=== PATIENT | female | born 1955 | race Caucasian/White ===

== ENCOUNTER 2017-07-26 22:44 | Emergency (ER) | payer OTHER ==
[~2017-07-26] VITALS: Ht 149.9 cm; Wt 65.0 kg
[~2017-07-26 22:44] MED LIST: CYMB60CA PO; DICL75 PO; ED B10TA PO; GABA300C3 PO; LATA.005%O OU; LEVE500 PO; LOPR50TA12 PO; LORT5TAB PO; LOVA20TA PO; METO50TA PO; OMEP20TA PO; PROT40TA PO; SERTRALINE PO; TIMO0.2525 OP; TOPI100 PO; ZOLP10TA3 PO
[2017-07-26 22:52] VITALS: BP 131/71; PULSE 63; RESP 16; TEMP 98.5; O2SAT 95
[2017-07-26] MEDS ORDERED: ARTIDRO EACH EYE (23:11)
[2017-07-26] MEDS ORDERED: IBUP200T47 PO (23:11)
[2017-07-26] MEDS ORDERED: TRIAM.1%T TOPICAL (23:11)
[2017-07-26] MEDS ORDERED: BACL10TA PO (23:11)
[2017-07-26] MEDS ORDERED: LOVA20TA PO (23:11)
[2017-07-26] MEDS ORDERED: TIMO0.254 EACH EYE (23:11)
[2017-07-26] MEDS ORDERED: EFFE150C PO (23:11)
[2017-07-26] MEDS ORDERED: METO25TA3 PO (23:11)
[2017-07-26] MEDS ORDERED: LATA0.002 EACH EYE (23:11)
[2017-07-26] MEDS ORDERED: ESTR.625 PO (23:11)
[2017-07-26] MEDS ORDERED: ZOFR4TAB PO (23:11)
[2017-07-26] MEDS ORDERED: MELA5 PO (23:11)
[2017-07-26] MEDS ORDERED: ZOLP10TA3 PO (23:11)
[2017-07-26] MEDS ORDERED: GABA800T PO (23:11)
[2017-07-26] MEDS ORDERED: DOCU100C15 PO (23:11)
[2017-07-26] MEDS ORDERED: OXYB5TAB PO (23:11)
[2017-07-26] MEDS ORDERED: TOPI25TA7 PO (23:11)
[2017-07-26] MEDS ORDERED: OXYC1TAB35 PO (23:11)
[2017-07-26] MEDS ORDERED: LEVE10003 PO (23:11)
[2017-07-26] MEDS ORDERED: CIPR0.3S LEFT EAR (23:11)
[2017-07-26] MEDS ORDERED: GABA100C4 PO (23:11)
--- NOTE | 2017-07-26 23:37 | PD ---
HPI Chief Complaint: Medical Clearance Time Seen by Provider: 23:11 Travel History International Travel<30 days: No Contact w/Intl Traveler<30days: No Traveled to known affect area: No History of Present Illness HPI The patient is 61 year old female who presents to the [facility] emergency department with a history of confusion upon awakening. She reports that she believes that she was having a dream that her granddaughter was there, therefore when she awoke suddenly she asked where her granddaughter was. She reports that the senior care staff was concerned that she was hallucinating. The patient reports that she did take a pain pill as well as a sleeping pill prior to going to bed. The patient is awake and alert at this time. The patient is oriented to person, place, time, and situation. A review of systems otherwise, the patient denies having any recent fevers, neck pain, chest pain, shortness of breath, abdominal pain, vomiting, diarrhea, urinary symptoms, or new neurologic symptoms. She recently has had increased congestion and postnasal drip over the last 2 weeks. 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 Arthritis: No Asthma: No Anxiety: Yes Depression: Yes Heart Rhythm Problems: No Cancer: Yes (SKIN CANCER) Cardiovascular Problems: No High Cholesterol: Yes Chest Pain: Yes Congestive Heart Failure: No COPD: No Cerebrovascular Accident: Yes (CVA X2 IN 2010- BLEEDS) GERD: No Genitourinary: No Hiatal Hernia: No Hypertension: Yes Kidney Stones: No Musculoskeletal: No Neurologic: No Reproductive: No Respiratory: No Migraines: No Renal Failure: No Seizures: Yes (SINCE CVA'S) Sleep Apnea: No Ulcer: No Tetanus Vaccination: Unknown Influenza Vaccination: Yes Menopausal: Yes Past Surgical History Narrative Surgical The patient's past surgical history is significant for craniotomy, bilateral breast biopsies, hysterectomy. Abdominal Surgery: No Body Medical Devices: PLATE SCREWS HEAD Cardiac Surgery: No Ear Surgery: No Endocrine Surgery: No Eye Surgery: Yes Genitourinary Surgery: No Gynecologic Surgery: Yes (HYSTERECTOMY ) Hysterectomy: Yes Neurologic Surgery: Yes (CRAINIOTOMY-EVACUATION OF BRAIN BLEED AND REMOVAL OF SOME BRAIN MATTER) Oral Surgery: No Thoracic Surgery: No Other Surgery: Yes (BILATERAL BREAST BIOPSYS) Social History Alcohol Use: Yes (BEER OR WINE DAILY) Tobacco Use: No Substance Use: No Allergies-Medications (Allergen,Severity, Reaction): Coded Allergies: Sulfa (Sulfonamide Antibiotics) (Unverified Allergy, Mild, 07/26/17) Reported Meds & Prescriptions Reported Meds & Active Scripts Active Macrobid (Nitrofurantoin Monoh/Nitrofur Macro) 100 Mg Cap 100 Mg PO BID 7 Days Reported Zolpidem (Zolpidem Tartrate) 10 Mg Tab 10 Mg PO HS PRN Zofran (Ondansetron HCl) 4 Mg Tab 4 Mg PO Q8HR PRN Triamcinolone Topical (Triamcinolone Acetonide) 0.1 % Oint 1 Applic TOPICAL BID Topiramate 25 Mg Tab 100 Mg PO BID Timoptic-Xe Opth Gel (Timolol Opth Gel) 0.25 % Gel 1 Drop EACH EYE BID Premarin (Estrogens Conjugated) 0.625 Mg Tab 0.625 Mg PO HS Oxycodone-Acetaminophen 7.5-325 mg Tab 1 Tab PO Q4H PRN Oxybutynin ER 24 HR (Oxybutynin Chloride) 5 Mg Tab 5 Mg PO DAILY Metoprolol Tartrate 25 Mg Tab 25 Mg PO BID Melatonin 5 Mg Tab 3 Mg PO HS Lovastatin 20 Mg Tab 20 Mg PO DAILY Levetiracetam 1,000 Mg Tab 1,000 Mg PO BID Artificial Tears Opth Drops (Propylene Glycol-Glycerin Opth Drops) 1-0.3% Drops 1-2 Drop EACH EYE PRN PRN Latanoprost Opth Drops (Latanoprost) 0.005% Drops 1 Drop EACH EYE HS Refrigerate until opened. Ibuprofen 200 Mg Tab 200 Mg PO Q6H PRN Gabapentin 800 Mg Tab 800 Mg PO TID Gabapentin 100 Mg Cap 100 Mg PO TID Effexor XR 24 HR (Venlafaxine HCl) 150 Mg Cap 112.5 Mg PO DAILY Docusate Sodium 100 Mg Cap 100 Mg PO BID Ciprodex Otic Drops (Ciprofloxacin-Dexamethasone Otic Drops) 0.3-0.1% Susp 4 Drop LEFT EAR QID Baclofen 10 Mg Tab 15 Mg PO BID Review of Systems Except as stated in HPI: all other systems reviewed are Neg General / Constitutional: No: Fever Eyes: No: Visual changes HENT: Positive: Congestion, No: Headaches Cardiovascular: No: Chest Pain or Discomfort Respiratory: No: Shortness of Breath Gastrointestinal: No: Nausea, Vomiting, Diarrhea, Abdominal Pain Genitourinary: No: Dysuria Musculoskeletal: No: Pain Skin: No Rash Neurologic: Positive: Focal Abnormalities (Chronic left-sided weakness), Change in Mentation, No: Weakness, Slurred Speech, Sensory Disturbance Psychiatric: No: Depression, Suicidal Ideations, Mood Disorder, Homicidal Ideation Endocrine: No: Polydipsia Hematologic/Lymphatic: No: Easy Bruising Physical Exam Narrative General: The patient is a well-developed well-nourished female in no acute distress. Head and Neck exam: Head is normocephalic atraumatic. Eyes: EOMI, pupils are equal round and reactive to light. Nose: Midline septum with pink mucous membranes Mouth: Dentition unremarkable. Moist mucus membranes. Posterior oropharynx is not erythematous. No tonsillar hypertrophy. Uvula midline. Airway patent. Neck: No palpable lymphadenopathy. No nuchal rigidity. No thyromegaly. Cardiovascular: Regular rate and rhythm without murmurs, gallops, or rubs. Lungs: Clear to auscultation bilaterally. No wheezes, rhonchi, or rales. Abdomen: Soft, without tenderness to palpation in all 4 quadrants of the abdomen. No guarding, rebound, or rigidity. Normal bowel sounds are audible. No tenderness on palpation of McBurney's point. Extremities: No clubbing, cyanosis, or edema. 2+ pulses in all 4 extremities. The patient has contractures noted of the left upper extremity and inversion of the left ankle which is chronic from her prior stroke. Back: No spinous process tenderness to palpation. No costovertebral angle tenderness to palpation. Neurologic Exam: The patient's neurologic examination is at baseline with residual left facial droop, left upper and left lower extremity weakness. The patient is oriented at this time to person, place, time, and situation. Skin Exam: No rash noted. Intact skin that is warm and dry. Data Data Last Documented VS Vital Signs Date Time Temp Pulse Resp B/P (MAP) Pulse Ox O2 Delivery O2 Flow Rate FiO2 07/27/17 03:00 56 16 120/66 (84) 95 Room Air 07/26/17 22:52 98.5 Orders Orders Complete Blood Count With Diff (07/26/17 23:13) Comprehensive Metabolic Panel (07/26/17 23:13) Urinalysis - C+S If Indicated (07/26/17 23:13) Cath For Specimen (07/26/17 23:13) Magnesium (Mg) (07/26/17 23:13) Ammonia (07/26/17 23:13) Chest, Single Ap (07/26/17 23:13) Ct Brain W/O Iv Contrast(Rout) (07/26/17 23:13) Iv Access Insert/Monitor (07/26/17 23:13) Ecg Monitoring (07/26/17 23:13) Oximetry (07/26/17 23:13) Nitrofurantoin Monohyd Macrocr (Macrobid (07/27/17 01:15) Labs Laboratory Tests Test 07/26/17 23:15 07/26/17 23:20 07/27/17 00:00 White Blood Count 7.8 TH/MM3 Red Blood Count 4.57 MIL/MM3 Hemoglobin 13.8 GM/DL Hematocrit 40.6 % Mean Corpuscular Volume 88.9 FL Mean Corpuscular Hemoglobin 30.3 PG Mean Corpuscular Hemoglobin Concent 34.1 % Red Cell Distribution Width 13.1 % Platelet Count 229 TH/MM3 Mean Platelet Volume 10.5 FL Neutrophils (%) (Auto) 62.5 % Lymphocytes (%) (Auto) 29.1 % Monocytes (%) (Auto) 6.0 % Eosinophils (%) (Auto) 1.9 % Basophils (%) (Auto) 0.5 % Neutrophils # (Auto) 4.9 TH/MM3 Lymphocytes # (Auto) 2.3 TH/MM3 Monocytes # (Auto) 0.5 TH/MM3 Eosinophils # (Auto) 0.1 TH/MM3 Basophils # (Auto) 0.0 TH/MM3 CBC Comment DIFF FINAL Differential Comment Blood Urea Nitrogen 11 MG/DL Creatinine 0.88 MG/DL Random Glucose 79 MG/DL Total Protein 8.0 GM/DL Albumin 3.8 GM/DL Calcium Level 9.0 MG/DL Magnesium Level 2.2 MG/DL Alkaline Phosphatase 96 U/L Aspartate Amino Transf (AST/SGOT) 22 U/L Alanine Aminotransferase (ALT/SGPT) 33 U/L Total Bilirubin 0.2 MG/DL Sodium Level 143 MEQ/L Potassium Level 3.9 MEQ/L Chloride Level 111 MEQ/L Carbon Dioxide Level 24.5 MEQ/L Anion Gap 8 MEQ/L Estimat Glomerular Filtration Rate 65 ML/MIN Ammonia 25 MCMOL/L Urine Color LIGHT-YELLOW Urine Turbidity HAZY Urine pH 6.0 Urine Specific [place] 1.008 Urine Protein NEG mg/dL Urine Glucose (UA) NEG mg/dL Urine Ketones NEG mg/dL Urine Occult Blood NEG Urine Nitrite NEG Urine Bilirubin NEG Urine Urobilinogen LESS THAN 2.0 MG/DL Urine Leukocyte Esterase NEG Urine RBC 7 /hpf Urine WBC 7 /hpf Urine Squamous Epithelial Cells 1 /hpf Urine Amorphous Sediment RARE Urine Bacteria RARE /hpf Urine Mucus FEW /lpf Microscopic Urinalysis Comment CULT NOT INDICATED MDM Medical Decision Making Medical Screen Exam Complete: Yes Emergency Medical Condition: Yes Medical Record Reviewed: Yes Interpretation(s) Last Impressions Head CT 07/26/172312 Signed Impressions: Service Date/Time: Wednesday, July 26, 2017 23:38 - CONCLUSION: No acute disease. Himanshu King MD Chest X-Ray 07/26/172312 Signed Impressions: Service Date/Time: Wednesday, July 26, 2017 23:33 - CONCLUSION: No acute disease. Himanshu King MD Differential Diagnosis Urinary tract infection, versus hepatic encephalopathy, versus confusion post awakening after sleeping medication administration and narcotic pain medication use for chronic pain. Narrative Course During the course of the patient's emergency department visit, the patient's history, examination, and differential diagnosis were reviewed with the patient. The patient was placed on a school lunch monitor with oximetry and frequent blood pressure monitoring. The patient had IV access obtained and blood work sent for analysis. The patient's laboratory studies were reviewed and remarkable for a CBC that is within normal limits. CMP that is remarkable for chloride of 111, GFR of 65, ammonia level is 25. Urinalysis shows 7 RBCs, 7 WBCs, 1 squamous epithelial cell, rare bacteria, culture indicated. Radiology studies were reviewed and remarkable for chest x-ray that shows no acute cardiopulmonary disease, CT scan of the brain shows no acute abnormality. The patient was given Macrobid p.o. 1 The patient has remained awake and alert, no further episodes of hallucinations or altered mentation. The patient will be discharged back to her nursing home facility with Macrobid. The patient is resting comfortably and feels better, is alert and in no distress. The patient's results and examination findings were discussed with the patient. The repeat examination is unremarkable and benign. The history, exam, diagnostic testing, and current condition do not suggest any significant pathology to warrant further testing, continued ED treatment, admission, or surgical evaluation at this point. The vital signs have been stable. The patient does not have uncontrollable pain, intractable vomiting, or other significant symptoms. The patient's condition is stable and appropriate for discharge. The patient will pursue further outpatient evaluation with a primary care physician or other designated or consulting physician as indicated in the discharge instructions. The patient expressed understanding and was agreeable with this plan. Diagnosis Primary Impression: Altered mental status Qualified Codes: R41.82 - Altered mental status, unspecified Additional Impression: Urinary tract infection Qualified Codes: N30.01 - Acute cystitis with hematuria Referrals: Primary Care Physician 2 days Patient Instructions: Altered Mental Status (ED), General Instructions, Urinary Tract Infection in Women (ED) Med/Other Pt SpecificInfo: Prescription(s) given Scripts Nitrofurantoin Monohydrate Macrocrystals (Macrobid) 100 Mg Cap 100 MG PO BID for Infection for 7 Days, #14 CAP 0 Refills Prov: Marilyn Sainz MD 07/27/17 Disposition: 03 DISCHARGE TO SNF Condition: Stable Marilyn Sainz MD Jul 26, 2017 23:37
--- NOTE | 2017-07-26 23:46 | RADRPT ---
EXAM DATE/TIME: 07/26/2017 23:33 [facility] COMPARISON: No previous studies available for comparison. INDICATIONS : Altered mental status. MEDICAL HISTORY : None. SURGICAL HISTORY : None. ENCOUNTER: Initial ACUITY: 1 day PAIN SCORE: 0/10 LOCATION: Bilateral chest FINDINGS: A single view of the chest demonstrates the lungs to be symmetrically aerated without evidence of mas s, infiltrate or effusion. The cardiomediastinal contours are unremarkable. Osseous structures are intact. CONCLUSION: No acute disease. Himanshu King MD on July 26, 2017 at 23:44 Board Certified Radiologist. This report was verified electronically.
--- NOTE | 2017-07-26 23:48 | RADRPT ---
EXAM DATE/TIME: 07/26/2017 23:38 [facility] COMPARISON: No previous studies available for comparison. INDICATIONS : Altered mental status. RADIATION DOSE: 56.35 CTDIvol (mGy) MEDICAL HISTORY : Cardiovascular disease. Cerebrovascular disease. Seizures. SURGICAL HISTORY : Hysterectomy. Craniotomy.Breast augmentation ENCOUNTER: Initial ACUITY: 1 day PAIN SCALE: Non-responsive LOCATION: cranial TECHNIQUE: Multiple contiguous axial images were obtained of the head. Using automated exposure control and adj ustment of the mA and/or kV according to patient size, radiation dose was kept as low as reasonably a chievable to obtain optimal diagnostic quality images. DICOM format image data is available electro nically for review and comparison. FINDINGS: There is atrophy, remote right MCA infarct with encephalomalacia and extra-axial dilatation right lat eral ventricle, and a remote left basal ganglia lacunar infarct. The patient has had previous right f rontal craniotomy with postsurgical changes identified. There are no signs of acute infarct, hemorrha ge, or mass. CONCLUSION: No acute disease. Himanshu King MD on July 26, 2017 at 23:45 Board Certified Radiologist. This report was verified electronically.
[2017-07-26 23:57] LABS: ALKALINE PHOSPHATASE 96 U/L (45-117); AUTOMATED NEUTROPHIL # 4.9 TH/MM3 (1.8-7.7); BASOPHIL % 0.5 % (0.0-2.0); EOSINOPHIL # 0.1 TH/MM3 (0-0.4); EOSINOPHIL % 1.9 % (0.0-4.0); HEMATOCRIT 40.6 % (35.0-46.0); HEMOGLOBIN 13.8 GM/DL (11.6-15.3); LYMPH % 29.1 % (9.0-44.0); LYMPHOCYTE # 2.3 TH/MM3 (1.0-4.8); MEAN CELL VOLUME 88.9 FL (80.0-100.0); MEAN CORPUSCULAR HEMOGLOBIN 30.3 PG (27.0-34.0); MEAN CORPUSCULAR HGB CONC 34.1 % (32.0-36.0); MEAN PLATELET VOLUME 10.5 FL (7.0-11.0); MONOCYTE # 0.5 TH/MM3 (0-0.9); NEUT % 62.5 % (16.0-70.0); PLATELET COUNT 229 TH/MM3 (150-450); RED BLOOD COUNT 4.57 MIL/MM3 (4.00-5.30); RED CELL DISTRIBUTION WIDTH 13.1 % (11.6-17.2); TOTAL BILIRUBIN ADULT 0.2 MG/DL (0.2-1.0); WHITE BLOOD COUNT 7.8 TH/MM3 (4.0-11.0)
[2017-07-27 00:09] LABS: ALBUMIN 3.8 GM/DL (3.4-5.0); ALT (GPT) 33 U/L (10-53); AST (GOT) 22 U/L (15-37); BICARBONATE 24.5 MEQ/L (21.0-32.0); BLOOD UREA NITROGEN 11 MG/DL (7-18); CHLORIDE 111 MEQ/L (98-107); CREATININE 0.88 MG/DL (0.50-1.00); GLOMERULAR FILTRATION RATE 65 ML/MIN (>89); GLUCOSE,RANDOM 79 MG/DL (74-106); MAGNESIUM 2.2 MG/DL (1.5-2.5); SODIUM (NA) 143 MEQ/L (136-145)
[2017-07-27 00:30] VITALS: BP 131/70; PULSE 57; RESP 16; O2SAT 94
[2017-07-27 00:33] LABS: AMORPHOUS SEDIMENT, URINE RARE; BACTERIA, URINE RARE /hpf; BILIRUBIN, URINE NEG (NEG); BLOOD, URINE NEG (NEG); GLUCOSE,URINE NEG (NEG); KETONE, URINE NEG (NEG); MUCUS URINE FEW /lpf (OCC); NITRITE,URINE NEG (NEG); SQUAMOUS EPITHELIAL CELL URINE 1 /hpf (0-5); URINE COLOR LIGHT-YELLOW (YELLW/STRAW); URINE LEUKOCYTE ESTERASE NEG (NEG)
[2017-07-27] MEDS ORDERED: MACR100C2 PO (01:02)
[2017-07-27] MEDS ORDERED: NITROFURANTOIN MONOHYD MACROCR 100 MG CAP PO ONE (01:15)
[2017-07-27 03:00] VITALS: BP 120/66; PULSE 56; RESP 16; O2SAT 95
[2017-07-27 04:00] VITALS: BP 118/66; PULSE 50; RESP 16; O2SAT 96
[2017-07-27 08:15] VITALS: BP 130/71; TEMP 97.7
--- NOTE | 2017-07-27 11:06 | EKG ---
Date Performed: 07/26/2017 Time Performed: 22:59:54 PTAGE: 61 years EKG: Sinus rhythm WITH OCCASIONAL VENTRICULAR PREMATURE COMPLEXES RIGHT BUNDLE BRANCH BLOCK ABNORMAL ECG Since the thelma or tracing, there has been no significant change PREVIOUS TRACING : 10/14/2011 11.11 DOCTOR: Kaushal Hall Interpretating Date/Time 07/27/2017 11:02:19
== END 2017-07-27 08:15 ==
LOC: NEPE 22:44
DX: R41.82 Altered mental status, unspecified (principal); N39.0 Urinary tract infection, site not specified; I45.10 Unspecified right bundle-branch block; R94.31 Abnormal electrocardiogram [ECG] [EKG]; I69.954 Hemiplegia and hemiparesis following unspecified cerebrovascular disease affecting left non-dominant side; G40.909 Epilepsy, unspecified, not intractable, without status epilepticus; I10 Essential (primary) hypertension; F41.9 Anxiety disorder, unspecified; R56.9 Unspecified convulsions
CPT/HCPCS: 70450; 71045; 80053; 81001; 82140; 83735; 85025; 93005; 99285